=== PATIENT | male | born 1985 | race Caucasian/White ===

== ENCOUNTER 2017-08-23 08:58 | Emergency (ER) | payer OTHER ==
[2017-08-23] MEDS ORDERED: ALPRAZolam 1 MG TAB ONE (09:40)
[2017-08-23] MEDS ORDERED: ALPRAZolam 1 MG TAB PO PRN (09:41)
[2017-08-23] MEDS ORDERED: NS 1,000 ML IV ONE (09:47)
[2017-08-23 09:53] LABS: PLATELET COUNT 294 10^3/uL (150-400)
[2017-08-23] MEDS ORDERED: ONDANSETRON 4 MG/2 ML VIAL IVP ONE (10:07)
[2017-08-23] MEDS ORDERED: fentaNYL 100 MCG/2 ML INJ IVP ONE (10:07)
--- NOTE | 2017-08-23 10:10 | EDPHY ---
H & P Time Seen by Provider: 08/23/17 09:05 HPI/ROS: CHIEF COMPLAINT: Abdominal pain HISTORY OF PRESENT ILLNESS: 32-year-old male presents to the emergency department with left-sided abdominal pain and flank pain that began when he woke up early this morning. He states he has never had pain like this in the past. He had 1 episode of diarrhea today. The patient has long history of anxiety and is prescribed doxepin and Wellbutrin. He states that he stop this medication last weekend while he was going on a bachelor [place] trip and knew that he was going to consume a lot of alcohol. He restarted his medication yesterday. He states that he slept great last night. When he woke up this morning he developed this abdominal pain and now has also developed severe anxiety. No nausea or vomiting. No chest pain or difficulty breathing. No headache. No reported fever. No urinary symptoms. No history of kidney stones. No reported trauma. REVIEW OF SYSTEMS: Constitutional: No fever, no chills. Eyes: No double or blurry vision. ENT: No sore throat. Respiratory: No cough, no shortness of breath. Cardiac: No chest pain. Gastrointestinal: Abdominal pain and diarrhea as above. No vomit. Genitourinary: No dysuria. Musculoskeletal: Left flank pain. No neck pain. Skin: No rashes. Neurological: No headache. Past Medical/Surgical History: Anxiety, depression Social History: Single Smoking Status: Never smoked Physical Exam: General Appearance: Alert, extremely anxious. 147/92, heart rate 72, 99% on room air. Eyes: Pupils equal and round. Extraocular motions are all intact. ENT: Mouth: Mucous membranes moist. Respiratory: No wheezing, rhonchi, or rales, lungs are clear to auscultation. Cardiovascular: Regular rate and rhythm. Gastrointestinal: Abdomen is soft. He has some mild pain with palpation in the left lower quadrant. There is no rebound, guarding or masses noted. Mild CVA tenderness both on the left and the right. Neurological: Alert and oriented x 3, cranial nerves II through XII grossly intact Skin: Warm and dry, no rashes. Musculoskeletal: Nontender to palpate along the cervical, thoracic or lumbar spine. Neck is supple. Extremities: Full range of motion and no peripheral edema. Psychiatric: Patient is oriented X 3, there is no agitation. Constitutional: Initial Vital Signs Temperature (C) 36.7 C 08/23/17 09:01 Heart Rate 72 08/23/17 09:01 Respiratory Rate 18 08/23/17 09:01 Blood Pressure 147/92 H 08/23/17 09:01 O2 Sat (%) 99 08/23/17 09:01 O2 Delivery Mode Room Air Allergies/Adverse Reactions: No Known Allergies Allergy (Unverified 08/23/17 09:00) Home Medications: Medication Instructions Recorded Doxepin HCl 08/23/17 Tamsulosin HCl [Flomax] 0.4 mg PO DAILY #10 cap 08/23/17 Wellbutrin 100mg (*) 08/23/17 Medical Decision Making - Diagnostics Imaging Results: Imaging Impressions Abdomen/Pelvis CT 08/23/17 10:07 Impression: 6 mm calculus in the proximal to mid left ureter with moderate hydronephrosis. Results called and discussed with Dori Keane PA-C, on 08/23/2017, 11:54. Attention: This CT examination is specifically designed to evaluate patients who are clinically suspected of having acute obstructive uropathy. This examination does not use radiographic contrast, and as such, provides only a limited evaluation of the abdomen, pelvis and retroperitoneum. If there is further clinical suspicion for pathological conditions other than obstructive uropathy, a complete CT evaluation of the abdomen and pelvis utilizing intravenous, oral, and rectal contrast should be considered. Imaging: Discussed imaging studies w/ call worker person Radiologist, I viewed and interpreted images myself ED Course/Re-evaluation: 32-year-old male presents to the emergency department extremely anxious with left-sided abdominal pain and flank pain. Urinalysis revealed large amount of blood. Non con CT scan revealed 6 mm stone at the left proximal mid ureter with moderate hydronephrosis at the level of L4. I spoke with the on-call urologist, Dr. Eddy Simon, who agreed with Flomax and Toradol for this patient and will see them in the clinic in follow-up tomorrow. Patient was given 50 mg of IV Toradol and 0.4 mg of oral Flomax. Upon discharge, the patient was feeling much better. He was given a urine strainer. He was instructed to return if he developed fever, increasing pain, vomiting, or if he felt worse in any way. Differential Diagnosis: Including but not limited to kidney stone, urinary tract infection, pyelonephritis, urinary retention, gastroenteritis, anxiety - Data Points Laboratory Results: Laboratory Results 08/23/17 09:22 08/23/17 09:22 08/23/17 08/23/17 08/23/17 09:45 09:22 09:22 WBC 7.17 10^3/uL 10^3/uL (3.80-9.50) RBC 5.19 10^6/uL 10^6/uL (4.40-6.38) Hgb 16.5 g/dL g/dL (13.7-17.5) Hct 46.5 % % (40.0-51.0) MCV 89.6 fL fL (81.5-99.8) MCH 31.8 pg pg (27.9-34.1) MCHC 35.5 g/dL g/dL (32.4-36.7) RDW 12.3 % % (11.5-15.2) Plt Count 294 10^3/uL 10^3/uL (150-400) MPV 10.1 fL fL (8.7-11.7) Neut % (Auto) 57.8 % % (39.3-74.2) Lymph % (Auto) 29.7 % % (15.0-45.0) Luce % (Auto) 9.5 % % (4.5-13.0) Eos % (Auto) 2.0 % % (0.6-7.6) Baso % (Auto) 0.6 % % (0.3-1.7) Nucleat RBC Rel Count 0.0 % % (0.0-0.2) Absolute Neuts (auto) 4.15 10^3/uL 10^3/uL (1.70-6.50) Absolute Lymphs (auto) 2.13 10^3/uL 10^3/uL (1.00-3.00) Absolute Monos (auto) 0.68 10^3/uL 10^3/uL (0.30-0.80) Absolute Eos (auto) 0.14 10^3/uL 10^3/uL (0.03-0.40) Absolute Basos (auto) 0.04 10^3/uL 10^3/uL (0.02-0.10) Absolute Nucleated RBC 0.00 10^3/uL 10^3/uL (0-0.01) Immature Gran % 0.4 % % (0.0-1.1) Immature Gran # 0.03 10^3/uL 10^3/uL (0.00-0.10) Sodium 143 mEq/L mEq/L (135-145) Potassium 4.2 mEq/L mEq/L (3.5-5.2) Chloride 105 mEq/L mEq/L (97-110) Carbon Dioxide 24 mEq/l mEq/l (22-31) Anion Gap 14 mEq/L mEq/L (8-16) BUN 14 mg/dL mg/dL (7-23) Creatinine 1.1 mg/dL mg/dL (0.7-1.3) Estimated GFR > 60 Glucose 121 mg/dL H mg/dL (70-100) Calcium 9.9 mg/dL mg/dL (8.5-10.4) Urine Color YELLOW Urine Appearance MODERATELY TURBID Urine pH 8.0 H (5.0-7.5) Ur Specific [place] 1.021 (1.002-1.030) Urine Protein 1+ H (NEGATIVE) Urine Ketones NEGATIVE (NEGATIVE) Urine Blood 2+ H (NEGATIVE) Urine Nitrate NEGATIVE (NEGATIVE) Urine Bilirubin NEGATIVE (NEGATIVE) Urine Urobilinogen NEGATIVE EU EU (0.2-1.0) Ur Leukocyte Esterase NEGATIVE (NEGATIVE) Urine RBC 25-50 /hpf H /hpf (0-3) Urine WBC 1-3 /hpf /hpf (0-3) Ur Epithelial Cells TRACE /lpf /lpf (NONE-1+) Calcium Oxalate Crystal PRESENT /hpf /hpf (NONE-1+) Urine Mucus 2+ /lpf H /lpf (NONE-1+) Urine Glucose NEGATIVE (NEGATIVE) Medications Given: Discontinued Medications Alprazolam (Xanax) 1 mg PO HS PRN PRN Reason: Anxiety, Able to Take PO Stop: 02/19/18 09:40 Last Admin: 08/23/17 09:43 Dose: 2 mg Fentanyl (Sublimaze) 50 mcg IVP EDNOW ONE Stop: 08/23/17 10:08 Last Admin: 08/23/17 10:16 Dose: 100 mcg Sodium Chloride (Ns) 1,000 mls @ 0 mls/hr IV ONCE ONE PRN Reason: Wide Open Stop: 08/23/17 09:48 Last Admin: 08/23/17 10:17 Dose: 1,000 mls Ketorolac Tromethamine (Toradol) 15 mg IVP EDNOW ONE Stop: 08/23/17 12:20 Last Admin: 08/23/17 13:13 Dose: 15 mg Ondansetron HCl (Zofran) 4 mg IVP EDNOW ONE Stop: 08/23/17 10:08 Last Admin: 08/23/17 10:16 Dose: 4 mg Tamsulosin HCl (Flomax) 0.4 mg PO EDNOW ONE Stop: 08/23/17 12:20 Last Admin: 08/23/17 13:14 Dose: 0.4 mg Departure - Departure Disposition: Home, Routine, Self-Care Clinical Impression: Kidney stone on left side Condition: Good Instructions: Kidney Stones (ED) Additional Instructions: Flomax daily as directed until seen by Urology. Call to arrange follow-up appoint with urologist tomorrow. Return to the emergency department if you developed fever, difficulty urinating, vomiting, or if you feel worse in any way. Straine urine. Referrals: Eddy Simon MD [Medical Doctor] - 1-2 days without fail (Urologist on-call) Prescriptions: Tamsulosin HCl [Flomax] 0.4 mg PO DAILY #10 cap
[2017-08-23 10:24] VITALS: PULSE 65
[2017-08-23] MEDS ORDERED: KETOROLAC 30 MG/1 ML SDV IVP ONE (12:19)
[2017-08-23] MEDS ORDERED: TAMSULOSIN HCL 0.4 MG CAP PO ONE (12:19)
[2017-08-23 13:31] VITALS: TEMP 98.6; O2SAT 98
[2017-08-23 13:33] VITALS: BP 112/64; RESP 16
== END 2017-08-23 13:34 | disposition home or self-care (01) ==
DX: N20.0 Calculus of kidney (principal); R19.7 Diarrhea, unspecified
CPT/HCPCS: 96374; J1885; J2405; J3010

== ENCOUNTER → 2017-08-31 | Outpatient (CLI) | payer OTHER | LOC: FIMAGING 16:26 | PROVIDERS: ATTEND Physician Assistant Medical | DX: N20.1 Calculus of ureter (principal) ==

== ENCOUNTER → 2017-10-05 | Outpatient (CLI) | payer OTHER | LOC: FIMAGING 16:57 | PROVIDERS: ATTEND Physician Assistant Medical | DX: N20.1 Calculus of ureter (principal) ==